=== PATIENT | female | born 1975 | race Caucasian/White ===

== ENCOUNTER → 2020-11-11 12:27 | Outpatient (CLI) | payer BC, SELFPAY ==
--- NOTE | ~2020-11-11 | MM_ITS ---
EXAMINATION: MM screening mir BI w jennifer HISTORY: Screening mammogram TECHNIQUE: Craniocaudal and mediolateral oblique 3-D tomosynthesis images were obtained and synthetic 2-D images were generated. CAD analysis was submitted and interpreted. COMPARISON: No prior mammogram is available for comparison at this institution. BREAST PARENCHYMAL COMPOSITION: The breasts are heterogeneously dense, which may obscure small masses . FINDINGS: RIGHT BREAST: An asymmetry is present in the middle third of the slightly inner breast on the cranioc audal view. LEFT BREAST: An asymmetry is present in the third of the breast in line with the nipple axis on the c raniocaudal view. IMPRESSION: 1. Bilateral breast asymmetries which may represent the patient's baseline however no comparison is c urrently available. 2. Comparison with prior mammograms is necessary. BI-RADS Category 0: Incomplete: Needs comparison with prior mammograms. Reviewed, dictated and finalized at location A. IMPRESSION: 1. Bilateral breast asymmetries which may represent the patient's baseline roberts gerry no comparison is currently available. 2. Comparison with prior mammograms is necessary. BI-RADS Category 0: Incomplete: Needs comparison with prior mammograms.
== END ==
PROVIDERS: Visit Provider Obstetrics & Gynecology
DX: Z12.31 Encounter for screening mammogram for malignant neoplasm of breast (principal); R92.8 Other abnormal and inconclusive findings on diagnostic imaging of breast
CPT/HCPCS: 77063; 77067

== ENCOUNTER → 2021-01-04 14:16 | Outpatient (CLI) | payer BC, SELFPAY ==
--- NOTE | ~2021-01-04 | MMUS_ITS ---
EXAMINATION: MM diagnostic mir BI w jennifer, US breast BI complete HISTORY: Bilateral asymmetries on screening 11/11/2020 bilateral mammogram TECHNIQUE: Additional full field ML and bilateral spot craniocaudal 3-D tomosynthesis images of both breasts were performed and synthetic 2-D images were generated. CAD analysis was submitted and interp reted. High resolution complete breast ultrasound including all 4 quadrants and subareolar areas was performed. COMPARISON: 11/11/2020 bilateral digital screening mammogram FINDINGS: MAMMOGRAPHIC FINDINGS: No suspicious mass or architectural distortion is evident on these supplemental views of both breasts . ULTRASOUND: No suspicious mass or shadowing or other significant sonographic abnormality in either breast is dete cted. IMPRESSION: 1. No mammographic evidence of malignancy 2. Routine mammographic screening is recommended BI-RADS Category 1: Negative Reviewed, dictated and finalized at location A. IMPRESSION: 1. No mammographic evidence of malignancy 2. Routine mammographic screening is recommended BI-RADS Category 1: Negative
== END ==
PROVIDERS: Visit Provider Obstetrics & Gynecology
DX: R92.8 Other abnormal and inconclusive findings on diagnostic imaging of breast (principal)
CPT/HCPCS: 76641; 77062; 77066; G0279

== ENCOUNTER → 2021-05-10 10:06 | Outpatient (CLI) | payer BC, SELFPAY ==
--- NOTE | ~2021-05-10 | MMUS_ITS ---
EXAMINATION: MM diagnostic mir LT w jennifer, US breast LT limited HISTORY: Palpable left breast lump TECHNIQUE: Additional 3-D tomosynthesis images of the left breast were performed and synthetic 2-D im ages were generated. CAD analysis was submitted and interpreted. High-resolution targeted left breast ultrasound. COMPARISON: Comparison to multiple prior studies sequentially, with oldest reviewed study dated 01/18. BREAST PARENCHYMAL COMPOSITION: The breasts are heterogenously dense, which may obscure small masses. FINDINGS: There are no suspicious masses, calcifications or architectural distortion in the left ies[address] to suggest malignancy. Limited left breast ultrasound: Normal heterogeneous echotexture without discrete mass. IMPRESSION: 1. No evidence for malignancy in the left breast. 2. Routine yearly screening mammogram and regular clinical breast examination are recommended. BI-RADS Category 2: Benign finding(s). Reviewed, dictated and finalized at location B. L COOK IMPRESSION: 1. No evidence for malignancy in the left breast. 2. Routine yearly screening mammogram and regular clinical breast examination a re recommended. BI-RADS Category 2: Benign finding(s).
== END ==
PROVIDERS: Visit Provider Nurse Practitioner
DX: N63.20 Unspecified lump in the left breast, unspecified quadrant (principal)
CPT/HCPCS: 76642; 77061; 77065; G0279

== ENCOUNTER → 2021-06-15 12:35 | Outpatient (CLI) | payer BC, SELFPAY ==
--- NOTE | ~2021-06-15 | US_ITS ---
EXAMINATION: US OB <=14 wk fetus w TV DATE: 06/15/2021 13:39 INDICATION: . Left-sided cramping. TECHNIQUE: Real-time transabdominal and transvaginal pelvic ultrasound was performed. COMPARISON: None. FINDINGS: TRANSABDOMINAL ULTRASOUND: The uterus measures 9.9 x 5.0 x 6.7 cm. TRANSVAGINAL ULTRASOUND: There is an intrauterine gestational sac. A yolk sac is identified. The fet al crown rump length measures 4 mm, which correlates with an estimated gestational age of 6 weeks and 1 day(s) (+/-) 4 day(s). heart motion is identified on cine images. The right ovary measures 2 .1 x 1.5 x 1.4 cm. The left ovary measures 2.6 x 1.6 x 1.9 cm. There is a 2.6 cm subserosal fibroid i n anterior lower uterine segment. There is a 4.1 cm subserosal fibroid posteriorly. There is no free fluid in the pelvis. IMPRESSION: 1. Single living intrauterine gestation with estimated date of delivery of 02/07/2022. 2. Uterine fibroids. Reviewed, dictated and finalized at location A. IMPRESSION: 1. Single living intrauterine gestation with estimated date of delivery of . 2. Uterine fibroids.
== END ==
PROVIDERS: PCP Physician Assistant; Visit Provider Physician Assistant
DX: Z33.1 Pregnant state, incidental (principal); D25.9 Leiomyoma of uterus, unspecified
CPT/HCPCS: 76801; 76817

== ENCOUNTER 2022-04-13 13:45 | Outpatient (CLI) | payer BC, SELFPAY ==
--- NOTE | 2022-04-13 | ECG_ITS ---
Measurements Intervals Armstrong Rate: 68 P: 61 MA: 163 QRS: 75 QRSD: 94 T: 49 QT: 419 QTc: 448 Interpretive Statements SINUS RHYTHM BASELINE ARTIFACT- V3 NORMAL ECG NO PREVIOUS ECG AVAILABLE FOR COMPARISON Electronically Signed On 04-13-2022 14:33:11 [employer]TER by Andrew Garcia D.O.
== END 2022-04-13 13:46 | disposition home or self-care (01) ==
LOC: ANHCARD 13:48
PROVIDERS: PCP Physician Assistant; Visit Provider Physician Assistant
DX: Z01.89 Encounter for other specified special examinations (principal)
CPT/HCPCS: 93005

== ENCOUNTER 2022-04-17 14:34 | Outpatient (CLI) | payer BC, SELFPAY ==
--- NOTE | 2022-04-17 | ECHO_ITS ---
Patient Info Name: Natalie Ballesteros Age: 46 years : 1975 Gender: Female Ht: 67 in Wt: 170 lbs BSA: 1.92 m2 HR: 67 bpm BP: 124 / 86 mmHg Heart Rhythm: Sinus Rhythm Technical Quality: Fair Exam Date: 04/17/2022 3:02 PM Exam Location: [facility] Patient Status: Outpatient Admit Date: 04/17/2022 Staff Ordering Physician: CbLore PA-C Airport Screener: Casie Castañeda RDCS Attending Provider: Lore Oh PA-C Exam Type: CA echo doppler color flow Study Info Indications I49.9 - Cardiac arrhythmia, unspecified Complete two-dimensional, color flow and Doppler transthoracic echocardiogram is performed. Summary 1. Complete two-dimensional, color flow and Doppler transthoracic echocardiogram is performed. 2. Left ventricular chamber dimension is normal. 3. Left ventricular systolic function is normal, estimated at 60-65%. 4. The left ventricular diastolic function is normal. 5. Right ventricular systolic function is normal. 6. The mitral valve has thickened leaflets. 7. There is mild mitral valve regurgitation. 8. There is mild tricuspid valve regurgitation. 9. Normal inferior vena cava with <50% collapse upon inspiration consistent with elevated right atrial pressure, 8 mmHg. Left Ventricle Left ventricular chamber dimension is normal. Left ventricular systolic function is normal, estimated at 60-65%. There is no increased left ventricular wall thickness. The left ventricular diastolic function is normal. Right Ventricle Right ventricular chamber dimension is normal. Right ventricular systolic function is normal. Left Atria Left atrial chamber dimension is normal. Right Atria Right atrial chamber dimension is normal. Atrial Septum Intact interatrial septum visualized by color flow imaging. Aortic Valve The aortic valve is trileaflet. There is no aortic valve stenosis. There is no aortic valve regurgitation. Pulmonic Valve The pulmonic valve is not well visualized. Mitral Valve The mitral valve has thickened leaflets. There is no mitral valve stenosis. There is mild mitral valve regurgitation. Tricuspid Valve The tricuspid valve leaflets are normal. There is no significant tricuspid valve stenosis. There is mild tricuspid valve regurgitation. Pericardium/Pleural There is trivial pericardial effusion. Inferior Vena Cava Normal inferior vena cava with <50% collapse upon inspiration consistent with elevated right atrial pressure, 8 mmHg. Aorta The aortic root size at the sinus of Valsalva is normal. Left Ventricular Outflow Tract Name Value Normal LVOT 2D LVOT Diameter 2.0 cm LVOT Doppler LVOT Peak Gradient 3 mmHg LVOT Mean Gradient 1 mmHg LVOT VTI 17 cm LVOT VTI/AV VTI Ratio 0.7 LVOT Stroke Volume 52 ml LVOT CO 3.2 l/min LVOT CI 1.6 l/min/m2 Pulmonic Valve
== END 2022-04-17 14:35 | disposition home or self-care (01) ==
LOC: ANHCARD 14:35
PROVIDERS: PCP Physician Assistant; Visit Provider Physician Assistant
DX: I36.1 Nonrheumatic tricuspid (valve) insufficiency (principal); I34.0 Nonrheumatic mitral (valve) insufficiency
CPT/HCPCS: 93306

== ENCOUNTER 2023-07-17 14:55 | Outpatient (CLI) | payer BC, SELFPAY ==
[2023-07-17 15:12] LABS: Hematocrit 40.2 % (37.0-47.0)
--- NOTE | 2023-07-17 15:16 | ECG_ITS ---
SEE SCANNED COPY FOR CONFIRMED REPORT. MTDD
== END 2023-07-17 14:56 | disposition home or self-care (01) ==
PROVIDERS: Anesthesiology; PCP Physician Assistant; Visit Provider Obstetrics & Gynecology
DX: N92.1 Excessive and frequent menstruation with irregular cycle (principal); D64.9 Anemia, unspecified; R00.2 Palpitations; Z01.818 Encounter for other preprocedural examination
CPT/HCPCS: 36415; 85014; 85018; 86850; 86900; 86901; 93005

== ENCOUNTER 2023-07-18 06:01 | Day surgery (SDC) | payer BC, SELFPAY ==
[2023-07-16 13:40] VITALS: BMI 25.9
--- NOTE | 2023-07-16 13:55 | PC.NURSE ---
Addendum entered by Alexey De La Rosa RN 07/16/23 14:20: Take Propanolol with a sip of water morning of surgery. Original Note: Report to the Outpatient Waiting Room, entrance under the [place] [facility] located off [facility], at time _0600_ on date _[id number]_. Planned Procedure Time: _0730_. Time changes happen often and if your time is changed the preop area will call you the afternoon before. - You and your visitor will be asked to self-screen and do not enter if you have any COVID symptoms. - A mask is optional within the hospital at this time. Patients may have clear liquids (water, carbonated beverages, clear teas, apple juice) until 3 hours prior to surgery with a maximum of 20 ounces. - No food from midnight until time of surgery Take the following medications with a SIP of water the morning of surgery: ___None DO NOT STOP ANY OF YOUR OTHER PRESCRIPTION MEDICATIONS PRIOR TO SURGERY ?EXCEPT THE FOLLOWING Medications to discontinue per physician ____Vitamins and fish oil Date to take last dose__Stop now. Please no make-up, nail kazakh, hairspray, perfume, deodorant, or body powder the day of surgery. No jewelry (including any body piercings) or valuables the day of surgery, leave them at home. Please take a shower or bath the night before, or the morning of, surgery with an antibacterial soap. Wear comfortable, loose fitting clothing. - Jewelry must be removed prior to entering the operating room. Rings and piercings that are not removed may be cut off. - The hospital will not accept responsibility for valuables. - Please leave all valuables, including medications, at home the day of surgery. If you are going home after surgery, a licensed jukebox route driver must drive you home. - NO public transportation without another adult if you receive anesthesia. - We recommend that an adult stay with you for 24 hours following discharge. - We also recommend that you do not drive, make important decision, drink alcoholic beverages, or take any drugs that were not prescribed by your health care provider for at least 24 hours after your discharge time. Follow any additional instructions given to you from your surgeon. If you or anyone in your household have experienced Covid symptoms in the past week, please notify your surgeon or the nurse liaison at the phone number below for possible testing. Telephone instructions given to _Natalie__and asked if any additional questions and then verbalized understanding. Patient advised to call surgeon office or pre surgery nurse liaison [phone] if any additional questions.
[2023-07-18] VITALS (8 sets, daily range): BP systolic 116–135; BP diastolic 72–83; PULSE 45–96; RESP 12–16; TEMP 36.1–36.5; O2SAT 98–100
--- NOTE | 2023-07-18 06:46 | WPDANESEPPF ---
Anes - Initial Pre Proc Eval Procedure: Operation Date: 07/18/23 07:30 Proposed Procedures p Laparoscopic Supracervical Hysterectomy with Bilateral Salpingectomy - Arlen Hall MD Date/Time: 07/18/23 06:46 Surgeon: Arlen Hall MD Pre Op Diagnosis: Menorrhagia Patient Data Age: 47 Gender: F Height: 1.73 m Weight: 77.9 kg Last Vital Signs Temp 36.5 C 07/18/23 06:28 Pulse 64 07/18/23 06:28 Resp 16 07/18/23 06:28 BP 116/73 07/18/23 06:28 Pulse Ox 100 07/18/23 06:28 O2 Del Method Room Air 07/18/23 06:28 Allergies Allergy/AdvReac Type Severity Reaction Status Date / Time latex Allergy Mild HIVES, Verified 07/16/23 13:30 RASH, ITCHING Home Medications Medication Instructions Recorded Confirmed Type albuterol sulfate 90 mcg/actuation 1 inh inhalation Q4H 06/23/21 07/18/23 History aerosol inhaler dextroamphetamine-amphetamine 20 20 mg PO BID 06/23/21 07/18/23 History mg tablet (Adderall) ubrogepant 50 mg tablet (Ubrelvy) 50 mg PO ONCE PRN migranes 10/03/21 07/18/23 History Lactobacillus 40-Bifidobact 1 cap PO DAILY 07/16/23 07/18/23 History 3-S.thermophilus 100 billion cell capsule (Probiotic) baclofen 10 mg tablet 10 mg PO TID 07/16/23 07/18/23 History calcium carb-ergocalciferol (vit 1 tablet PO DAILY 07/16/23 07/18/23 History D2) 500 mg-125 unit tablet diphenhydramine HCl 25 mg tablet 25 mg PO HS PRN Allergy Symptoms 07/16/23 07/18/23 History fluticasone propionate 50 1 spray intranasal DAILY 07/16/23 07/18/23 History mcg/actuation nasal spray,suspension folic acid 1 mg tablet 1 mg PO DAILY 07/16/23 07/18/23 History multivitamin 1 tablet PO DAILY 07/16/23 07/18/23 History omega 7-yue-qpm-fish oil 1,200 mg 1 cap PO DAILY 07/16/23 07/18/23 History (144 mg-216 mg) capsule (Fish Oil) progesterone micronized 100 mg 100 mg PO HS 07/16/23 07/18/23 History capsule propranolol 10 mg tablet 10 mg PO TID PRN Anxiety 07/16/23 07/18/23 History Patient hx anesthesia problems: none Family hx anesthesia problems: none Results Review: All pre-operative results and documents have been reviewed as part of the pre-operative evaluation. [facility] Past Medical History Medical History Anxiety Asthma Infertility management Migraines Missed Post concussion syndrome Sleep disorder Spina bifida Surgical History Surgical History (Updated 07/18/23 @ 06:47 by Ian Eddy MD) H/O cervical spine surgery H/O colonoscopy History of lumpectomy left breast Benign History of tonsillectomy Family History Family History Father Hypertension Social History Social History Smoking status: Never smoker Alcohol intake: current Drinks per week: 1 Substance use: never Substance use type: does not use Living arrangements: with family Additional living arrangements comments: Occupation/Education: other 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 Gender identity (if verbalized by the patient): Female Sexual Orientation (if Verbalized by the Patient): Straight or Heterosexual Spiritual care concerns: No Anes - Eval Final PreProcedure Day of Procedure 07/18/23 06:46 Patient weight: normal Heart: regular rate and rhythm Lungs: clear to auscultation Airway: Mallampati scale class II Neurological: alert and oriented Last oral intake: >/= 8 hours ASA classification: III Emergent: no Anesthetic plan: proceed Anesthesia type and monitoring: general ETT and standard monitoring Results Review: All pre-operative results and documents have been reviewed as part of the pre-operative evaluation. Informed Consent: The patient's anesthetic plan and its attendant risks and benefits were discussed with the patient/family/POA. Questions were solicited
[2023-07-18] MEDS: LACTATED RINGERS 1,000 ML 30 ML IV CONT ×2 (07:16→10:02)
[2023-07-18] MEDS: ACETAMINOPHEN 500 MG TABLET 1000 MG PO (07:17)
--- NOTE | 2023-07-18 07:17 | WPDHPUPDATE1 ---
History and Physical Update Update Date/Time: 07/18/23 07:17 History and Physical has been reviewed, including an updated exam of the patient. There are NO changes in the patient's condition. Risks, benefits, and alternatives have been discussed and questions answered. Patient agrees to proceed with procedure.
[2023-07-18] MEDS: KETOROLAC 15 MG/ML VIAL (*BKC) IV PUSH (07:18)
--- NOTE | 2023-07-18 07:21 | PM.IMHP ---
H&P: HPI History of Present Illness Date/Time: 07/18/23 07:21 Chief Complaint: Heavy vaginal bleeding Narrative: this patient is a 47-year-old female was heavy vaginal bleeding and right-sided pelvic pain. We have agreed to perform laparoscopic supracervical hysterectomy, bilateral salpingectomy and right oophorectomy. Patient understands the procedure. It has been explained to her in detail. She understands risks. She understands injuries may occur that result in hospitalization, more surgery, and severe illness. She understands risk of hemorrhage and infection. She denies any nausea, vomiting, fever, chills. She denies any chest pain or shortness of breath. Review of Systems Review of Systems: All systems reviewed & are unremarkable except as noted in HPI and below Constitutional: Constitutional: Denies chills, Denies fatigue, Denies fever(s) and Denies weakness Eyes: Eyes: Denies blurry vision, Denies change in vision, Denies loss of peripheral vision, Denies loss of vision, Denies other visual disturbances and Denies eye pain ENT: Denies vertigo, Denies dizziness, Denies hearing loss, Denies mouth pain, Denies nasal obstruction, Denies neck mass and Denies neck pain Cardiovascular: Cardiovascular: Denies chest pain, Denies diaphoresis, Denies syncope, Denies leg edema and Denies dyspnea Respiratory: Respiratory: Denies chest congestion, Denies cough, Denies hemoptysis, Denies dyspnea and Denies wheezing Gastrointestinal: Gastrointestinal: Denies abdominal pain, Denies constipation, Denies diarrhea, Denies nausea and Denies vomiting Genitourinary: Genitourinary: Denies hematuria, Denies change in libido, Denies nocturia, Denies genital lesions, Denies flank pain and Denies urinary urgency Musculoskeletal: Musculoskeletal: Denies abnormal gait, Denies back pain, Denies myalgias, Denies arthralgias, Denies joint swelling, Denies muscle weakness and Denies neck pain Integumentary/Breasts: Skin/Breast: Denies swelling, Denies breast pain, Denies breast mass, Denies dry skin, Denies nipple discharge, Denies unusual bruising and Denies jaundice Neurologic: Denies Neuro-related abnormal movements, Denies Abnormal speech present, Denies abnormal gait, Denies behavioral changes, Denies confusion, Denies vertigo, Denies dizziness, Denies syncope, Denies loss of vision, Denies memory loss, Denies convulsions and Denies weakness Psychiatric: Psychiatric: Denies abnormal sleep pattern, Denies behavioral changes, Denies change in libido, Denies confusion, Denies depression, Denies anhedonia and Denies memory loss Endocrine: Endocrine: Reports no additional endocrine complaints, Denies change in libido and Denies fatigue Hematologic/Lymphatic: Hematologic/Lymphatic: Reports no additional hematologic/lymphatic complaints Allergic/Immunologic: Allergic/Immunologic: Reports no additional allergic/immunologic complaints and Denies wheezing PMFSH Past Medical History Medical History (Updated 07/18/23 @ 07:24 by Arlen Hall MD) Anxiety Asthma Infertility management Migraines Missed Post concussion syndrome Sleep disorder Spina bifida Surgical History Surgical History (Updated 07/18/23 @ 06:47 by Ian Eddy MD) H/O cervical spine surgery H/O colonoscopy History of lumpectomy left breast Benign History of tonsillectomy Family History Family History Father Hypertension Social History Social History Smoking status: Never smoker Alcohol intake: current Drinks per week: 1 Substance use: never Substance use type: does not use Living arrangements: with family Additional living arrangements comments: Occupation/Education: other 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
[2023-07-18] MEDS: SCOPOLAMINE 1 MG PATCH 1 PATCH TRANSDERM (07:23)
[2023-07-18] MEDS: ceFAZolin 2 GM/D5W 50 ML 2 GM/50 ML BAG IVPB (07:32)
[2023-07-18] MEDS: ceFAZolin SODIUM 1 GM VIAL (08:02)
[2023-07-18] MEDS: METHYLENE BLUE 0.5% INJ 10 ML AMPULE IRRIGATION (09:31)
[2023-07-18] MEDS: fentaNYL CITRATE INJ (*CRX) 100 MCG/2 ML VIAL 25 MCG IV PUSH ×3 (10:13→10:47)
--- NOTE | 2023-07-18 10:28 | W.PM.PROC2 ---
Procedure Note - Detailed Date of Procedure 07/18/23 Pre-op Diagnosis Menorrhagia Post-op Diagnosis Same Procedure Performed Laparoscopic supracervical hysterectomy, bilateral salpingectomy, right oophorectomy Surgeon Arlen Hall MD Anesthesia General Findings enlarged fibroid uterus, normal-appearing tubes and ovaries. Description of Procedure This patient was taken to the operating room. She was prepped and draped in the dorsal lithotomy position after induction of general anesthesia. The uterine manipulator and Tata cup were placed. This was done with a speculum and tenaculum. The speculum was placed. The cervix was grasped with a tenaculum. The stay sutures were placed at 3 and 9:00 a.m.. The stay sutures of 0 Vicryl were brought through the appropriately sized Tata cup. The tip of the CAYLA manipulator was placed in the intrauterine cavity. The cup was slid into place around the cervix and into the fornices. It was locked into place. The sutures were then wrapped around the handle and tied under tension. A 5 mm skin incision was made in the left upper quadrant the abdomen. A 5 mm trocar was inserted into the intrauterine cavity under direct visualization of the scope. Pneumoperitoneum was achieved. A left lower quadrant 15 mm incision was made with scalpel, a 15 mm trocar was inserted into the abdominal cavity under direct visualization the scope. A 5 mm infraumbilical incision was made with a scalpel and a 5 mm trocar was inserted the intra-abdominal cavity under direct visualization of the scope. Bilateral ureteral lysis was performed. This was done from the pelvic brim down to the uterine artery. This was done with careful dissection using sharp and blunt dissection. The fallopian tubes were removed bilaterally. The mesosalpinx around the fallopian tubes were cauterized transected with LigaSure cautery. This was done in a bilateral fashion from the ovary to the uterine cornua. The fallopian tube was transected at the uterine cornu and amputated bilaterally. The tube was taken out the left lower quadrant trocar site. In a stepwise fashion along the lateral aspects of the uterus the round ligament and broad ligaments were cauterized transected down to the level of the uterine arteries. The uterus was Bifurcated using cautery. This was actually into 3 pieces that were moderate-sized. This was done in linear fashion down to the level of the cervix. The cervix was then transected with cautery. The pieces of the uterus were placed in endobag. The right ovary was removed and placed in the endobag. This was done by cauterize the infundibulopelvic ligament the paraovarian tissue with the LigaSure cautery. The uterus and ovary were taken out the left lower quadrant trocar site. The bag. The fascia at the left lower trocar site was later closed with interrupted sutures of 0 Vicryl. Two sutures. The pelvis was irrigated with copious amounts antibiotic irrigation. The ureters were again examined and found to be intact and flowing freely under the uterine arteries into the bladder. The bladder was intact. It was examined directly. Cystoscopy was performed after administration of methylene blue. The cystoscope was inserted. Bladder was distended with fluid. The ureteric meatus was observed bilaterally. Blue fluid was seen to egress bilaterally. The bladder was drained and the cystoscope was withdrawn. The vagina was irrigated with Betadine solution after removal of the Pneumo occluder. The patient was taken to recovery room. She was stable condition. Sponge lap and needle counts were correct x2. Drains Yes Packing No Pathology Yes Complications No immediate complications Condition Stable Disposition Floor
--- NOTE | 2023-07-18 10:55 | ADMGEN ---
This patient, Natalie Ballesteros, was admitted to OB 2nd Floor Room 288-00. Patient/family oriented to hospital policies and general routines including ID bracelet, bed and alarms, visiting hours, pain management, procedures, bathroom and other care routines, personal items, smoking policy, room service/diet, and visiting hours. Information on how to activate the Rapid Response Team has been discussed. Patient/Family are encouraged to report perceived risks to care and to ask questions if they do not understand what they are told or what they should do.
[2023-07-18] MEDS: KETOROLAC 30 MG/ML VIAL (*BKC) IV PUSH (11:27)
[2023-07-18] MEDS: DEXTROSE 5%/0.45% SOD CHL 1,000 ML 125 ML IV CONT (11:30)
[2023-07-18] MEDS: OMEGA 3 POLYUNSAT FATTY ACIDS 1 GM CAP PO (14:01)
[2023-07-18] MEDS: FLUTICASONE PROPIONATE 0.05% NA SPR 16 GM BTL (*BKC) 1 SPRAY NASAL (14:01)
[2023-07-18] MEDS: BACLOFEN 10 MG TABLET PO ×2 (14:02→17:35)
[2023-07-18] MEDS: FOLIC ACID 1 MG TABLET PO (14:02)
[2023-07-18] MEDS: SIMETHICONE 80 MG TAB.CHEW PO ×2 (14:02→17:04)
[2023-07-18] MEDS: HYDROcodone/acetaminophen (*CRX) 10-325 MG TABLET 1 TAB PO (14:15)
[2023-07-18] MEDS: MORPHINE SULFATE (*CRX) 15 MG TAB IR PO ×2 (17:03→22:00)
[2023-07-19 00:44] VITALS: BP 122/71; PULSE 70; RESP 16; TEMP 36.7; O2SAT 97
[2023-07-19] MEDS: MORPHINE SULFATE (*CRX) 15 MG TAB IR PO ×2 (04:27→09:07)
[2023-07-19 04:32] VITALS: BP 124/81; PULSE 59; RESP 16; TEMP 36.5; O2SAT 98
[2023-07-19 08:20] VITALS: BP 113/80; PULSE 64; RESP 18; TEMP 37.1; O2SAT 100
--- NOTE | 2023-07-19 08:24 | PM.GYNPNOP ---
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 - A/P Postoperative Procedures: Procedures Operation Date: 07/18/23 07:30 Actual Procedure Side Surgeon p Laparoscopic Supracervical Hysterectomy with Bilateral Salpingectomy Bilateral Arlen Hall MD s Right oophorectomy Right Arlen Hall MD Postoperative day: 1 Postoperative status: doing well Postoperative plan: see orders Time Spent With Patient Time: Total time spent is greater than 50% in coordination of care (as documented) at patient's floor/unit and/or counseling patient: Time with patient: less than 15 minutes 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- PN:Subj Post-Op Subjective Date/time seen: 07/19/23 08:24 Subjective: patient reports feeling better, patient has no complaints and pain is well controlled Exam Const: General: healthy appearing, comfortable and no acute distress Resp: Auscultation: clear to auscultation bilaterally, no rales, no rhonchi and no wheezes Cardio: Rate: regular rate Heart sounds: no click, no murmurs and no rubs GI: Inspection: non-distended Auscultation: normal bowel sounds Extrem: General: normal to inspection, no pedal edema and no calf tenderness 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 - PN: Obj Data Vital Signs Vital Signs: Vital Signs - 24 hr 07/18/23 10:02 07/18/23 10:15 07/18/23 10:30 Temperature 96.9 F L Pulse Rate 96 57 L 53 L Respiratory Rate 16 12 13 Blood Pressure 120/77 135/83 130/79 Pulse Oximetry 100 100 98 Oxygen Delivery Simple Face Mask Room Air Room Air Oxygen Flow Rate 8 07/18/23 10:45 07/18/23 11:00 07/18/23 15:35 Temperature 97 F L 97.5 F L Pulse Rate 62 58 L 70 Respiratory Rate 14 16 16 Blood Pressure 128/82 119/72 121/79 Pulse Oximetry 98 100 100 Oxygen Delivery Room Air Oxygen Flow Rate 07/18/23 21:28 07/19/23 00:44 07/19/23 04:32 Temperature 97.6 F 98.1 F 97.7 F Pulse Rate 45 L 70 59 L Respiratory Rate 16 16 16 Blood Pressure 134/75 122/71 124/81 Pulse Oximetry 100 97 98 Oxygen Delivery Oxygen Flow Rate 07/19/23 04:32 Temperature Pulse Rate 59 L Respiratory Rate 16 Blood Pressure Pulse Oximetry 98 Oxygen Delivery Room Air Oxygen Flow Rate Intake/Output Intake/Output: Intake & Output 04/29/24 04/30/24 05/01/24 05/02/24 23:59 23:59 23:59 23:59 Intake Total 1718 880 Output Total 7722 1140 Balance -920 -352 Meds/Results Medications: Active Medications Generic Name Dose Route Start Last Admin Trade Name Freq PRN Reason Stop Dose Admin Albuterol 1 puff 07/18/23 12:00 Albuterol Sulfate (*Sp) Aerosol 1 Puff INHALATION Q4HRT PRN shortness of breath/wheezing Baclofen 10 mg 07/18/23 13:00 07/18/23 17:35 Baclofen 10 Mg Tablet PO 10 mg TID JENNY Administration Calcium Carbonate 500 mg 07/19/23 09:00 Calcium/Vitamin D 500 Mg/5 Mcg (200 I.U.) Tablet PO QAM JENNY Diphenhydramine HCl 25 mg 07/18/23 10:51 Diphenhydramine Hcl Cap 25 Mg Capsule PO HS PRN Allergy Symptoms Fish Oil 1 gm 07/18/23 11:00 07/18/23 14:01 [place] 3 Polyunsat Fatty Acids 1 Gm Cap PO 1 gm DAILY JENNY Administration Fluticasone Propionate 1 spray 07/18/23 11:00 07/18/23 14:01 Fluticasone Propionate 0.05% Na Spr 16 Gm Btl (*Bkc) NASAL 1 spray DAILY JENNY Administration Folic Acid 1 mg 07/18/23 11:00 07/18/23 14:02 Folic Acid 1 Mg Tablet PO 1 mg DAILY JENNY Administration Dextrose/Sodium Chloride 1,000 mls @ 125 mls/hr 07/18/23 10:51 07/19/23 06:38 Dextrose 5% Sodium Chloride 0.45% IV CONT Not Given .Q8H JENNY Ibuprofen 600 mg 07/18/23 10:51 Ibuprofen 600 Mg Tablet PO Q6H PRN Cramping Ketorolac Tromethamine 30 mg 07/18/23 10:51 07/18/23 11:27 Ketorolac 30 Mg/Ml Vial (*Bkc) IV PUSH 07/23/23 10:50 30 mg Q6H PRN Administration Pain Rated 4-6 Morphine Sulfate 15 mg 07/18/23 15:53 07/19/23 04:27 Morphine Sulfate (*Crx) 15 Mg Tab Ir PO 15 mg Q4H PRN Administration Pain Rated 7-10 Multivitamins Therapeutic 1 tablet 07/19/23 09:00 M
[2023-07-19] MEDS: SIMETHICONE 80 MG TAB.CHEW PO (09:05)
[2023-07-19] MEDS: BACLOFEN 10 MG TABLET PO (09:06)
[2023-07-19] MEDS: CALCIUM/VITAMIN D 500 MG/5 MCG (200 I.U.) TABLET PO (09:06)
[2023-07-19] MEDS: MULTIVITAMINS THERAPEUTIC TAB (*BKC) 1 TABLET PO (09:07)
[2023-07-19] MEDS: OMEGA 3 POLYUNSAT FATTY ACIDS 1 GM CAP PO (09:07)
[2023-07-19] MEDS: FOLIC ACID 1 MG TABLET PO (09:07)
[2023-07-19] MEDS: FLUTICASONE PROPIONATE 0.05% NA SPR 16 GM BTL (*BKC) 1 SPRAY NASAL (09:07)
--- NOTE | 2023-07-19 11:49 | WPDANESPN ---
Anes - Prog Note Post-Op Date/Time: 07/19/23 11:49 Cardiovascular status: normal Respiratory status: normal Airway patency: baseline Mental status: baseline Post-Op hydration status: normal Vital Signs: Last Vital Signs Temp 37.1 C 07/19/23 08:20 Pulse 64 07/19/23 08:20 Resp 18 07/19/23 08:20 BP 113/80 07/19/23 08:20 Pulse Ox 100 07/19/23 08:20 O2 Del Method Room Air 07/19/23 07:00 O2 Flow Rate 8 07/18/23 10:02 Pain Score (VAS): 0 I/O: Intake & Output 07/18/23 07/19/23 07/19/23 23:59 07:59 15:59 Intake Total 550 880 Output Total 650 1140 Balance -100 -260 Post-procedural complaints: none Patient Feedback: Patient satisfied with anesthetic care.
== END 2023-07-19 11:00 | disposition home or self-care (01) ==
LOC: ANHSURGERY 10:16 → ANHOB2 10:52
PROVIDERS: PCP Physician Assistant; Visit Provider Obstetrics & Gynecology
PROC: 0UT9FZZ Resection of Uterus, Via Natural or Artificial Opening With Percutaneous Endoscopic Assistance (ICD-10-PCS; CPT 58542; principal; 2023-07-18 07:30)
PROC: (CPT 49320; 2023-07-18 07:30)
DX: N92.0 Excessive and frequent menstruation with regular cycle (principal); D25.9 Leiomyoma of uterus, unspecified; N83.291 Other ovarian cyst, right side; N80.101 Endometriosis of right ovary, unspecified depth; N83.8 Other noninflammatory disorders of ovary, fallopian tube and broad ligament; F41.9 Anxiety disorder, unspecified; J45.909 Unspecified asthma, uncomplicated; G47.9 Sleep disorder, unspecified; Q05.9 Spina bifida, unspecified; Z98.890 Other specified postprocedural states; Z98.1 Arthrodesis status; Z79.51 Long term (current) use of inhaled steroids
CPT/HCPCS: 58542; 36415; 85014; 85018; 86850; 86900; 86901; 88307; 93005; 99199; A9270; J0461; J0690; J1100; J1170; J1596; J1885; J2250; J2405; J3010; J7030; J7120; Q9968

== ENCOUNTER 2024-02-29 14:46 | Outpatient (CLI) | payer BC, SELFPAY ==
--- NOTE | ~2024-02-29 | US_ITS ---
EXAMINATION: US thyroid DATE: 02/29/2024 14:59 INDICATION: Abnormal thyroid function tests. TECHNIQUE: Multiple ultrasound images of the thyroid were obtained. COMPARISON: None. FINDINGS: The right thyroid lobe measures 5.4 x 2.0 x 1.7 cm. The left thyroid lobe measures 4.7 x 1.4 x 1.6 c m. The thyroid demonstrates diffusely heterogeneous echogenicity and increased vascularity. No discr ete nodule. IMPRESSION: 1. Heterogeneous, hypervascular thyroid, consistent with chronic lymphocytic ([place]) thyroiditis. Reviewed, dictated and finalized at location A. 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 Heterogeneous, hypervascular thyroid, consistent with chronic lymphocytic (H ashimoto) thyroiditis.
== END 2024-02-29 14:47 | disposition home or self-care (01) ==
LOC: GOSHIMG 14:48
PROVIDERS: PCP Physician Assistant; Visit Provider Physician Assistant
DX: R94.6 Abnormal results of thyroid function studies (principal)
CPT/HCPCS: 76536

== ENCOUNTER 2025-02-11 11:16 | Outpatient (CLI) | payer OTHER, SELFPAY ==
--- NOTE | ~2025-02-11 | MM_ITS ---
EXAMINATION: MM screening mir BI w jennifer HISTORY: Screening. TECHNIQUE: Craniocaudal and mediolateral oblique 3-D tomosynthesis images were obtained and synthetic 2-D images were generated. CAD analysis was submitted and interpreted. COMPARISON: 2021 and 2020 BREAST PARENCHYMAL COMPOSITION: Dense: The breast tissue is heterogeneously dense, which may obscure small masses. FINDINGS: No suspicious masses are seen. There are no suspicious calcifications. No unexplained architectural distortion is seen. There are no skin or nipple abnormalities identified. There is no adenopathy seen on the images submitted. IMPRESSION: No mammographic evidence to suggest malignancy is seen. The patient may return to screening mammography as per ACR guidelines. BI-RADS: 1 - Negative. Reviewed, dictated and finalized at location B. 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
== END 2025-02-11 11:17 | disposition home or self-care (01) ==
LOC: MICIMG 11:17
PROVIDERS: PCP Physician Assistant; Visit Provider Student in an Organized Health Care Education/Training Program
DX: Z12.31 Encounter for screening mammogram for malignant neoplasm of breast (principal)
CPT/HCPCS: 77063; 77067